=== PATIENT | male | born 1975 | race Caucasian/White ===

== ENCOUNTER 2024-12-09 06:35 | Day surgery (SDC) | payer OTHER, SELFPAY | END 2024-12-09 15:01 | disposition home or self-care (01) | LOC: GI 06:35 | PROVIDERS: ATTENDING PHYSICIAN Internal Medicine Gastroenterology | DX: R12 Heartburn (principal); R05.3 Chronic cough; K44.9 Diaphragmatic hernia without obstruction or gangrene; K22.89 Other specified disease of esophagus; K22.70 Barrett's esophagus without dysplasia | CPT/HCPCS: 43239; 88305 ==